=== PATIENT | female | born 1950 | race Caucasian/White ===

== ENCOUNTER → 2017-07-14 | Outpatient (CLI) | payer MEDICARE, BC ==
[2017-07-14 09:03] LABS: HEMOGLOBIN 12.9 gm/dl (12.3-15.3); RED BLOOD COUNT 4.5 M/UL (4.00-5.10); WHITE BLOOD COUNT 11.9 K/UL (4.5-11.0)
== END ==
LOC: OPSV2 08:00
PROVIDERS: Orthopaedic Surgery
DX: Z01.810 Encounter for preprocedural cardiovascular examination (principal); Z01.812 Encounter for preprocedural laboratory examination; T84.84XA Pain due to internal orthopedic prosthetic devices, implants and grafts, initial encounter; Z88.8 Allergy status to other drugs, medicaments and biological substances
CPT/HCPCS: 36415; 80048; 83036; 85025; 93005

== ENCOUNTER → 2021-06-01 | Outpatient (CLI) | payer MEDICARE, BC ==
[~2021-06-01] MED LIST: AMPICILLIN 500500 MG PO; ARICEPT10 MG PO; ASPIR 8181 MG PO; BAYER CHEWABLE81 MG PO; BENZONATATE100 MG PO; BUSPAR 5MG TABLE5 MG PO; BUSPIRONE HCL7.5 MG PO; COLACE 100MG C100 MG PO; COZAAR 25MG TAB25 MG PO; DALVANCE500 MG IV; DIFLUCAN 100 M100 MG PO; ELAVIL 50 MG TA50 MG PO; ENOXAPARIN30 MG/0.3 SC; FERROUS SULFAT324 MG PO; FERROUS SULFAT325 M2 PO; FERROUS SULFAT325 MG PO; GABAPENTIN300 MG PO; HUMALOG 10100 UNITS/ SC; HUMALOG100 UNIT/2 SQ; HUMULIN R; HUMULIN R100 UNIT/1 INJ; HUMULIN R500 UNIT/1 SC; HYDROCODON-ACE1 EAC2 PO; HYDROXYZINE PAM25 MG PO; IRON PO; LANTUS INS100 UTS/M1 SQ; LASIX20 MG PO; LOPRESSOR 25 MG25 MG PO; LOPRESSOR 50 MG50 MG PO; LORTAB 7.5-3251 EACH PO; MECLIZINE HCL25 MG PO; MELATONIN5 MG PO; MEMANTINE HCL E28 MG PO; MUPIROCIN22 GM TP; NAMENDA XR28 MG PO; NAMZARIC 28 MG1 EACH PO; NITROGLYCERIN0.4 MG SL; NITROSTAT 0.40.4 MG SL; NITROSTAT0.4 MG SL; NORCO 7.5-3251 EACH PO; NORVASC10 MG PO; OMNICEF 300 MG300 MG PO; OSTEO BI-FLEX1 EAC1 PO; OSTEO BI-FLEX1 EAC2 PO; PANTOPRAZOLE SO40 MG PO; PROTONIX40 MG PO; REQUIP0.25 MG PO; SERTRALINE HCL50 MG PO; SODIUM BICARBO650 MG PO; SYNTHROID 125125 MCG PO; SYNTHROID 150150 MCG PO; SYNTHROID150 MCG PO; TEARS NATURAL EYEBOTH; TENORMIN 50 MG50 MG PO; TESSALON PERLE100 MG PO; THERAGRAN M TAB1 EA PO; TOPROL XL50 MG PO; VITAMIN B-121000 MCG PO; WELLBUTRIN XL150 MG PO; ZANTAC150 MG PO; [UNRECOGNIZED DRUG - OTHER] OU
== END ==
LOC: HEART 5 04-12 08:30
DX: R07.9 Chest pain, unspecified (principal); I51.7 Cardiomegaly; I51.9 Heart disease, unspecified; I70.0 Atherosclerosis of aorta; I34.0 Nonrheumatic mitral (valve) insufficiency
CPT/HCPCS: 78452; 93306; A9502; J2785